=== PATIENT | male | born 1945 | race Caucasian/White ===

== ENCOUNTER 2018-02-21 12:06 | Emergency (ER) | payer OTHER ==
[~2018-02-21] VITALS: Ht 175.3 cm; Wt 102.9 kg
[~2018-02-21 12:06] MED LIST: ASPIRIN325 MG PO; FOLBIC RF TABL1 EACH PO; LIPITOR20 MG PO; LISINOPRIL20 MG PO; LOPRESSOR50 MG PO; NIACIN1000 MG PO; ONE DAILY MULT1 EACH PO; PERCOCET 5/31 TABLET PO; TRAMADOL HCL50 MG PO; ULORIC40 MG PO
[2018-02-21 13:20] LABS: HEMATOCRIT 41.7 % (38.0-50.0); HEMOGLOBIN 13.9 G/DL (12.5-16.6); MCH 30.3 PG (29.0-34.0); MCHC 33.3 G/DL (30.0-36.0); PLATELET COUNT 160 K/uL (156-360); RBC DIS.WIDTH-CV 13.8 % (11.8-14.6); RBC DIS.WIDTH-SD 45.7 % (39-53); RED BLOOD COUNT 4.58 M/uL (4.00-5.50); WHITE BLOOD COUNT 5.2 K/uL (4.1-10.2)
[2018-02-21 13:30] LABS: CHLORIDE 101 mEq/L (99-109); POTASSIUM 4.2 mEq/L (3.7-5.4); SODIUM 140 mEq/L (136-147)
[2018-02-21 13:31] LABS: GLUCOSE 102 mg/dL (70-99)
[2018-02-21 13:35] LABS: CREATININE 1.2 mg/dL (0.6-1.3); GFR ESTIMATE (CALCULATED) > 59 mL/min/ (58.99-99999)
[2018-02-21 13:36] LABS: UREA NITROGEN (BUN) 37 mg/dL (9-23)
[2018-02-21 13:49] LABS: APPEARANCE SL.HAZY ((CLEAR)); BILIRUBIN NEGATIVE; BLOOD MODERATE; COLOR YELLOW ((YELLOW)); GLUCOSE (STRIP) NEGATIVE; KETONES NEGATIVE; LEUKOCYTES LARGE; NITRITE NEGATIVE; PROTEIN (STRIP) NEGATIVE; SPECIFIC GRAVITY 1.014 (1.000-1.030)
[2018-02-21 14:07] LABS: BACTERIA RARE /HPF; EPITHELIAL CELLS 2+ /HPF; HYALINE CASTS 0-5 /LPF; MUCUS TRACE /LPF; RED BLOOD CELLS 15-20 /HPF (0-5); WHITE BLOOD CELLS TNTC /HPF (0-5)
[2018-02-21] MEDS ORDERED: CIPRO500 MG PO (14:32)
[2018-02-21 14:52] VITALS: BP 92/59
== END 2018-02-21 14:53 | disposition home or self-care (01) ==
LOC: RME 12:06 → EME 12:06 → RME 14:53
PROVIDERS: Emergency Medicine
DX: N39.0 Urinary tract infection, site not specified (principal); E78.5 Hyperlipidemia, unspecified; I11.0 Hypertensive heart disease with heart failure; I50.9 Heart failure, unspecified; I25.2 Old myocardial infarction; Z95.5 Presence of coronary angioplasty implant and graft; Z79.82 Long term (current) use of aspirin; Z88.6 Allergy status to analgesic agent
CPT/HCPCS: 71046; 80048; 81003; 83605; 83880; 85027; 87086; 99281; 99283

== ENCOUNTER 2018-03-02 17:39 | Inpatient (IN) | payer OTHER ==
[~2018-03-02] VITALS: Ht 172.7 cm; Wt 102.0 kg
[~2018-03-02 17:39] MED LIST changes: -ASPIRIN325 MG PO; +CIPRO500 MG PO; +DAILY VALUE1 EACH PO; +LITE COAT ASPI325 M1 PO; -ONE DAILY MULT1 EACH PO
[2018-03-02 18:40] LABS: HEMATOCRIT 39.9 % (38.0-50.0); HEMOGLOBIN 13.5 G/DL (12.5-16.6); MCH 30.5 PG (29.0-34.0); MCHC 33.8 G/DL (30.0-36.0); MCV 90.3 FL (86-99); PLATELET COUNT 183 K/uL (156-360); RBC DIS.WIDTH-CV 14.4 % (11.8-14.6); RED BLOOD COUNT 4.42 M/uL (4.00-5.50); WHITE BLOOD COUNT 5.4 K/uL (4.1-10.2)
[2018-03-02 18:51] LABS: CHLORIDE 102 mEq/L (99-109); POTASSIUM 4.3 mEq/L (3.7-5.4); SODIUM 135 mEq/L (136-147)
[2018-03-02 18:52] LABS: GLUCOSE 97 mg/dL (70-99)
[2018-03-02 18:56] LABS: CREATININE 1.9 mg/dL (0.6-1.3); GFR ESTIMATE (CALCULATED) 37 mL/min/ (58.99-99999)
[2018-03-02 18:57] LABS: UREA NITROGEN (BUN) 53 mg/dL (9-23)
[2018-03-02 19:03] LABS: TROP-I INTERPRETATION NEGATIVE; TROPONIN-I 0.03 ng/mL (0.0-0.30)
[2018-03-02] MEDS ORDERED: PROAIR HFA8.5 GM IH (20:02)
[2018-03-02] MEDS ORDERED: FUROSEMIDE20 MG PO (20:02)
[2018-03-02] MEDS ORDERED: BACTRIM,SEPT1 TABLET PO (20:02)
[2018-03-02] MEDS ORDERED: ENTRESTO 24 MG1 EACH PO (20:02)
[2018-03-02] MEDS ORDERED: AZELASTINE137 MCG/0. BOTH NARES (20:03)
[2018-03-02 20:58] LABS: APPEARANCE CLEAR ((CLEAR)); BILIRUBIN NEGATIVE; BLOOD NEGATIVE; COLOR YELLOW ((YELLOW)); GLUCOSE (STRIP) NEGATIVE; KETONES NEGATIVE; LEUKOCYTES TRACE; NITRITE NEGATIVE; PROTEIN (STRIP) NEGATIVE; SPECIFIC GRAVITY 1.015 (1.000-1.030); UROBILINOGEN 0.2 MG/DL (0.2-1.0)
[2018-03-02 21:15] LABS: BACTERIA NONE SEEN /HPF; EPITHELIAL CELLS RARE /HPF; MUCUS TRACE /LPF; RED BLOOD CELLS 0-5 /HPF (0-5); UCUL ADDED? NO; WHITE BLOOD CELLS 0-5 /HPF (0-5)
[2018-03-02 21:43] VITALS: BP 98/56
[2018-03-02 23:28] VITALS: BP 83/51
[2018-03-03] VITALS (12 sets, daily range): BP systolic 90–107; BP diastolic 51–75
[2018-03-03 05:55] LABS: HEMATOCRIT 38.5 % (38.0-50.0); HEMOGLOBIN 12.5 G/DL (12.5-16.6); MCH 29.6 PG (29.0-34.0); MCHC 32.5 G/DL (30.0-36.0); PLATELET COUNT 182 K/uL (156-360); RBC DIS.WIDTH-CV 14.5 % (11.8-14.6); RBC DIS.WIDTH-SD 47.5 % (39-53); RED BLOOD COUNT 4.23 M/uL (4.00-5.50); WHITE BLOOD COUNT 5.3 K/uL (4.1-10.2)
[2018-03-03 06:22] LABS: CHLORIDE 103 MEQ/L (99-109); CREATININE 1.7 MG/DL (0.6-1.3); GFR ESTIMATE (CALCULATED) 43 mL/min/ (58.99-99999); GLUCOSE 85 mg/dL (70-99); SODIUM 138 MEQ/L (136-147); UREA NITROGEN (BUN) 42 mg/dL (9-23)
[2018-03-03 15:23] LABS: UR CREATININE CONCENTRATION 148.7 MG/DL
[2018-03-04] VITALS (9 sets, daily range): BP systolic 58–119; BP diastolic 18–70
[2018-03-04 00:39] LABS: CARBOXY HGB 1.6 % (0-5); O2 SATURATION (CALCULATED) 98.2 % (95-99); PCO2 39 mm Hg (35-45); PO2 112 mm Hg (80-100); pH 7.41 (7.35-7.45)
[2018-03-04 00:40] LABS: BASE EXCESS 0.1 mEq/L (-3 to +3); BICARBONATE 24.7 mEq/L (22-26); COMMENTS - BLOOD GASES C+; DEVICE NC; METHEMOGLOBIN 1.4 % (0-1.5); O2 FLOW 3 L/MIN; SITE RR; TOTAL RESP RATE 16 resp/min
[2018-03-04 06:07] LABS: CHLORIDE 101 MEQ/L (99-109); GFR ESTIMATE (CALCULATED) 35 mL/min/ (58.99-99999); GLUCOSE 169 mg/dL (70-99); POTASSIUM 4.1 MEQ/L (3.7-5.4); SODIUM 134 MEQ/L (136-147); UREA NITROGEN (BUN) 43 mg/dL (9-23)
== END 2018-03-04 10:06 | DRG 682 ==
LOC: EME 17:39 → 3EAST 19:41 → EDOF 19:41 → ENRESERV 19:42 → 3EAST 21:10 → ENRESERV 03-03 12:16 → 3EAST 03-03 12:18 → ENRESERV 03-03 12:23 → 4WEST 03-03 13:48
PROVIDERS: Emergency Medicine; Hospitalist; Internal Medicine; Surgery
PROC: 5A2204Z Restoration of Cardiac Rhythm, Single (ICD-10-PCS; principal; 2018-03-04)
PROC: 5A12012 Performance of Cardiac Output, Single, Manual (ICD-10-PCS; principal; 2018-03-04)
PROC: 0BH17EZ Insertion of Endotracheal Airway into Trachea, Via Natural or Artificial Opening (ICD-10-PCS; principal; 2018-03-04)
PROC: 05HN33Z Insertion of Infusion Device into Left Internal Jugular Vein, Percutaneous Approach (ICD-10-PCS; principal; 2018-03-04)
DX: N17.9 Acute kidney failure, unspecified (principal); T37.0X5A Adverse effect of sulfonamides, initial encounter; K72.90 Hepatic failure, unspecified without coma; I49.01 Ventricular fibrillation; I46.9 Cardiac arrest, cause unspecified; Z51.5 Encounter for palliative care; Z66 Do not resuscitate; I13.0 Hypertensive heart and chronic kidney disease with heart failure and stage 1 through stage 4 chronic kidney disease, or unspecified chronic kidney disease; I50.23 Acute on chronic systolic (congestive) heart failure; N18.9 Chronic kidney disease, unspecified; E78.5 Hyperlipidemia, unspecified; I95.9 Hypotension, unspecified; I25.10 Atherosclerotic heart disease of native coronary artery without angina pectoris; M10.9 Gout, unspecified; I25.5 Ischemic cardiomyopathy; J45.909 Unspecified asthma, uncomplicated; E66.9 Obesity, unspecified; Z95.5 Presence of coronary angioplasty implant and graft; I25.2 Old myocardial infarction; Z79.82 Long term (current) use of aspirin; Z91.11 Patient's noncompliance with dietary regimen; Z68.34 Body mass index [BMI] 34.0-34.9, adult
CPT/HCPCS: 36415; 36600; 71046; 76770; 80048; 80048 91; 81003; 82436; 82570; 82803; 83605; 84156; 84300; 84484; 85027; 87040; 87641; 89190; 92950; 93005; 93306; 94640; 94640 76; 99202; 99281; 99285; J0171; J1630; J1644; J2260; J7040